=== PATIENT | female | born 1975 | race Caucasian/White ===

== ENCOUNTER 2016-06-26 17:18 | Emergency (ER) | payer MEDICAID ==
[~2016-06-26] VITALS: Ht 157.5 cm; Wt 70.3 kg
[~2016-06-26 17:18] MED LIST: 378 PO; ADV200
[2016-06-26 17:43] VITALS: BP 160/75
== END 2016-06-26 20:38 | disposition home or self-care (01) ==
LOC: ED 17:18
DX: S63.601A Unspecified sprain of right thumb, initial encounter (principal); W23.0XXA Caught, crushed, jammed, or pinched between moving objects, initial encounter; Y93.89 Activity, other specified; Y92.810 Car as the place of occurrence of the external cause; Y99.8 Other external cause status; S60.011A Contusion of right thumb without damage to nail, initial encounter